=== PATIENT | female | born 1940 | race Caucasian/White ===

== ENCOUNTER 2021-05-18 14:31 | Emergency (ER) | payer MEDICARE, OTHER ==
[~2021-05-18] VITALS: Ht 162.6 cm; Wt 60.8 kg
[~2021-05-18 14:31] MED LIST: ALEVE220 MG PO; ASPIRIN81 M2 PO; CRESTOR5 MG PO; FISH OIL 1,0001 EAC7 PO; HYDROCODON-ACE1 EACH PO; PRILOSEC 20 MG20 MG PO; STOOL SOFTENER1 EAC2 PO; ZOLOFT100 MG PO
[2021-05-18 15:14] LABS: ABSOLUTE LYMPHOCYTES 0.9 thou/uL (0.8-5.3); ABSOLUTE MONOCYTES 0.3 thou/uL (0.0-1.2); ABSOLUTE NEUTROPHILS 3.5 thou/uL (1.6-8.1); BASOPHILS 0.5 %; EOSINOPHILS 0.6 %; LYMPHOCYTES 19.5 %; MCH 30.2 pg (26.0-34.0); MCHC 34.3 g/dL (28.0-37.0); MCV 87.8 fL (80.0-100.0); MPV 7.7 fl. (7.2-11.1); NUCLEATED RBCS 0 /100WBC; PLATELET COUNT* 171 thou/uL (150-400); POLYS 73.4 %; RBC 3.99 mil/uL (4.20-5.00); RDW-CV 12.7 % (10.5-14.5); WBC 4.8 thou/uL (4.0-11.0)
[2021-05-18 15:20] LABS: CALCIUM 8.5 mg/dL (8.5-10.1); CREATININE 1.5 mg/dL (0.6-1.3)
[2021-05-18 15:31] LABS: MAGNESIUM 2.3 mg/dL (1.8-2.4); TOTAL BILIRUBIN 0.4 mg/dL (<0.1-1.0); TOTAL PROTEIN 7.2 g/dL (6.4-8.2)
--- NOTE | 2021-05-18 15:45 | EKG ---
[place] [address] ELECTROCARDIOGRAM REPORT Name: SHUBHAM ALVARADO Room: 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[facility] : 1940 Requested By: Cheri Lim Order Number: [id number] MD: Mario Carlos Measurements Intervals [place] Rate: 60 P: 38 CT: 149 QRS: -52 QRSD: 95 T: 37 QT: 435 QTc: 435 Interpretive Statements Sinus rhythm Left anterior fascicular block Borderline T abnormalities, anterior leads No previous ECG available for comparison Electronically Signed On 05-18-2021 15:45:16 CDT by Mario Carlos [email or web address] <ELECTRONICALLY SIGNED> By: Mario Carlos MD, [facility] 05/18/21 1545 1500 1500 Mario Carlos MD, FAC /EPI
[2021-05-18 16:26] LABS: URINE BILIRUBIN NEGATIVE (Negative); URINE BLOOD 2+ (Negative); URINE CLARITY CLOUDY; URINE COLOR YELLOW; URINE GLUCOSE-RANDOM NEGATIVE (Negative); URINE KETONES TRACE (Negative); URINE PROTEIN TRACE (Negative); URINE SPECIFIC GRAVITY 1.015 (1.005-1.030); URINE UROBILINOGEN 0.2 E.U./dl (0.2-1.0)
[2021-05-18 16:27] LABS: URINE LEUKOCYTES-REFLEX 3+ (Negative); URINE NITRITE-REFLEX POSITIVE (Negative)
[2021-05-18 16:37] LABS: BACTERIA-REFLEX >30 Many /HPF (None Seen); CRYSTALS None Seen /LPF (None Seen); MUCUS None Seen strn/LPF (None Seen); SQUAMOUS 0-3 Few /LPF (0-3); URINE RBC 3-10 Few /HPF (0-2); URINE WBC-REFLEX >25 Many /HPF (0-5); WBC CLUMPS Few (None Seen)
[2021-05-18 16:38] LABS: CASTS None Seen /LPF (None Seen)
[2021-05-18] MEDS ORDERED: CEPHALEXIN500 MG PO (16:42)
[2021-05-18 16:53] VITALS: BP 152/70
== END 2021-05-18 16:53 | disposition home or self-care (01) ==
LOC: M.ERS 14:31
PROVIDERS: Nurse Practitioner Family
DX: U07.1 COVID-19 (principal); N39.0 Urinary tract infection, site not specified; R42 Dizziness and giddiness; R53.1 Weakness; Z79.899 Other long term (current) drug therapy; Z79.82 Long term (current) use of aspirin

== ENCOUNTER 2021-05-21 17:41 | Emergency (ER) | payer MEDICARE, OTHER ==
[~2021-05-21] VITALS: Ht 162.6 cm; Wt 63.5 kg
[~2021-05-21 17:41] MED LIST changes: +CEPHALEXIN500 MG PO
[2021-05-21 18:35] LABS: ABSOLUTE EOSINOPHILS 0.1 thou/uL (0.0-0.7); ABSOLUTE LYMPHOCYTES 1.2 thou/uL (0.8-5.3); ABSOLUTE MONOCYTES 0.4 thou/uL (0.0-1.2); ABSOLUTE NEUTROPHILS 3.5 thou/uL (1.6-8.1); BASOPHILS 0.5 %; EOSINOPHILS 1.9 %; HEMOGLOBIN 11.8 gm/dL (12.0-15.0); MCH 30.2 pg (26.0-34.0); MCHC 34.8 g/dL (28.0-37.0); MCV 86.8 fL (80.0-100.0); MONOCYTES 7.4 %; MPV 7.1 fl. (7.2-11.1); NUCLEATED RBCS 0 /100WBC; PLATELET COUNT* 223 thou/uL (150-400); POLYS 67.2 %; RBC 3.92 mil/uL (4.20-5.00); RDW-CV 12.6 % (10.5-14.5); WBC 5.3 thou/uL (4.0-11.0)
[2021-05-21 18:39] LABS: CALCIUM 8.9 mg/dL (8.5-10.1); CREATININE 1.2 mg/dL (0.6-1.3); POTASSIUM 3.6 mmol/L (3.5-5.1)
[2021-05-21 18:47] LABS: URINE BILIRUBIN NEGATIVE (Negative); URINE BLOOD NEGATIVE (Negative); URINE CLARITY CLEAR; URINE COLOR YELLOW; URINE GLUCOSE-RANDOM NEGATIVE (Negative); URINE KETONES TRACE (Negative); URINE LEUKOCYTES 1+ (Negative); URINE NITRITE NEGATIVE (Negative); URINE PROTEIN NEGATIVE (Negative); URINE UROBILINOGEN 0.2 E.U./dl (0.2-1.0)
[2021-05-21 18:49] LABS: TOTAL BILIRUBIN 0.7 mg/dL (<0.1-1.0); TOTAL PROTEIN 7.3 g/dL (6.4-8.2)
[2021-05-21 19:01] LABS: CRYSTALS None Seen /LPF (None Seen); HYALINE CASTS 0-3 Few /LPF (None Seen); MUCUS None Seen strn/LPF (None Seen); SQUAMOUS 0-3 Few /LPF (0-3)
[2021-05-21 19:02] LABS: URINE WBC 6-15 Few /HPF (0-5)
[2021-05-21 19:03] LABS: BACTERIA 1-9 Few /HPF (None Seen); URINE RBC None Seen /HPF (0-2)
[2021-05-21 21:31] VITALS: BP 177/72
--- NOTE | 2021-05-22 14:34 | EKG ---
[place] [address] ELECTROCARDIOGRAM REPORT Name: SHUBHAM ALVARADO Room: 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: CD : 1940 Requested By: Chino López Order Number: [id number] MD: Mario Carlos Measurements Intervals [place] Rate: 65 P: 32 ME: 152 QRS: -55 QRSD: 91 T: 35 QT: 402 QTc: 418 Interpretive Statements Sinus rhythm Left anterior fascicular block Abnormal R-wave progression, late transition Nonspecific T abnormalities, anterior leads Compared to ECG 05/18/2021 15:00:39 No significant changes Electronically Signed On 05-22-2021 14:34:23 CDT by Mario Carlos [email or web address] <ELECTRONICALLY SIGNED> By: Mario Carlos MD, [facility] 05/22/21 1434 1826 1826 Mario Carlos MD, [facility] /EPI
== END 2021-05-21 21:31 | disposition home or self-care (01) ==
LOC: M.ERS 17:41
PROVIDERS: Physician Assistant
DX: R06.02 Shortness of breath (principal); Z79.899 Other long term (current) drug therapy; Z79.82 Long term (current) use of aspirin

== ENCOUNTER 2021-06-14 16:28 | Emergency (ER) | payer MEDICARE, OTHER ==
[~2021-06-14] VITALS: Ht 162.6 cm; Wt 64.0 kg
[2021-06-14] MEDS ORDERED: BACTRIM DS TAB1 EAC1 PO (16:43)
[2021-06-14 17:12] LABS: ABSOLUTE BASOPHILS 0.1 thou/uL (0.0-0.2); ABSOLUTE EOSINOPHILS 0.2 thou/uL (0.0-0.7); ABSOLUTE LYMPHOCYTES 0.9 thou/uL (0.8-5.3); ABSOLUTE MONOCYTES 0.6 thou/uL (0.0-1.2); ABSOLUTE NEUTROPHILS 6.4 thou/uL (1.6-8.1); BASOPHILS 0.9 %; HEMOGLOBIN 11.1 gm/dL (12.0-15.0); LYMPHOCYTES 11.5 %; MCH 30.4 pg (26.0-34.0); MCHC 34.7 g/dL (28.0-37.0); MCV 87.6 fL (80.0-100.0); MONOCYTES 7.7 %; MPV 7.7 fl. (7.2-11.1); NUCLEATED RBCS 0 /100WBC; PLATELET COUNT* 174 thou/uL (150-400); POLYS 77.9 %; RBC 3.66 mil/uL (4.20-5.00); RDW-CV 13.4 % (10.5-14.5); WBC 8.2 thou/uL (4.0-11.0)
[2021-06-14 17:12] LABS: BE -1.6 mmol/L (-2 to +3); PCO2 24.4 mmHg (35.0-45.0); PO2 116.8 mmHg (75.0-100.0); pH 7.526 (7.340-7.450)
[2021-06-14 17:20] LABS: CALCIUM 8.6 mg/dL (8.5-10.1); POTASSIUM 3.4 mmol/L (3.5-5.1)
[2021-06-14 17:20] LABS: URINE BILIRUBIN NEGATIVE (Negative); URINE BLOOD 2+ (Negative); URINE COLOR YELLOW; URINE GLUCOSE-RANDOM NEGATIVE (Negative); URINE KETONES NEGATIVE (Negative); URINE NITRITE-REFLEX NEGATIVE (Negative); URINE PROTEIN 1+ (Negative); URINE SPECIFIC GRAVITY >= 1.030 (1.005-1.030); URINE UROBILINOGEN 0.2 E.U./dl (0.2-1.0)
[2021-06-14 17:21] LABS: URINE CLARITY HAZY; URINE LEUKOCYTES-REFLEX 2+ (Negative)
[2021-06-14 17:23] LABS: CASTS None Seen /LPF (None Seen); CRYSTALS None Seen /LPF (None Seen); SQUAMOUS >10 Many /LPF (0-3); URINE RBC 3-10 Few /HPF (0-2); URINE WBC-REFLEX >25 Many /HPF (0-5)
[2021-06-14 17:24] LABS: ALBUMIN 3.4 g/dL (3.4-5.0); TOTAL BILIRUBIN 0.5 mg/dL (<0.1-1.0); TOTAL PROTEIN 7.4 g/dL (6.4-8.2)
[2021-06-14] MEDS ORDERED: XANAX 0.25 MG0.25 MG PO (17:33)
[2021-06-14 17:49] VITALS: BP 155/62
--- NOTE | 2021-06-16 09:00 | EKG ---
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: [facility] : 1940 Requested By: Gabriel Aviles Order Number: [id number] MD: Sean Dozier Measurements Intervals [place] Rate: 61 P: 25 MI: 143 QRS: -45 QRSD: 92 T: 42 QT: 445 QTc: 449 Interpretive Statements Sinus rhythm Left anterior fascicular block Abnormal R-wave progression, late transition Borderline T abnormalities, anterior leads Compared to ECG 05/21/2021 18:26:23 No significant changes Electronically Signed On 06-16-2021 9:00:33 CDT by Sean Dozier [email or web address] <ELECTRONICALLY SIGNED> By: Sean Dozier MD, FACC 06/16/21 0900 170 170 Sean Dozier MD, FAC /EPI
== END 2021-06-14 17:50 | disposition home or self-care (01) ==
LOC: M.ERS 16:28
PROVIDERS: Emergency Medicine
DX: F41.9 Anxiety disorder, unspecified (principal); R06.4 Hyperventilation; N39.0 Urinary tract infection, site not specified; Z79.899 Other long term (current) drug therapy; Z79.82 Long term (current) use of aspirin